=== PATIENT | male | born 1945 | race Caucasian/White ===

== ENCOUNTER → 2017-01-26 13:16 | Outpatient (CLI) | payer MEDICARE, OTHER ==
[2012-09-17 09:54] VITALS: BMI 41.8
== END | disposition home or self-care (01) ==
LOC: D.CT 13:16
DX: R10.9 Unspecified abdominal pain (principal)

== ENCOUNTER 2017-05-14 08:22 | Outpatient (CLI) | payer MEDICARE, OTHER ==
--- NOTE | ~2017-05-14 | HEMODYNAMI ---
PATIENT:DEB GHOSH MEDICAL RECORD: [id number] : 45 LOCATION:[place] ADMISSION DATE: 05/14/17 Generatedon:05/14/201711:29 Patient name: DEB GHOSH Patient #: [id number] SSN: : 1945 Date of study: 05/14/2017 Page: Of Hemodynamic Procedure Report Patient Data Patient Demographics Procedure consent was obtained First Name: DEB Gender: Male Last Name: AUGIE : 1945 Middle Initial: E Age: 71 year(s) Patient #: [id number] Race: Unknown Additional ID: [id number] Contact details [address]: [address] [place] [address] State: [place] City: [place] Zip code: [address] Past Medical History Allergies Allergen Reaction Date Comments Reported Other allergy 05/14/2017 Erythromicin, Tetracycline, Biaxin. Admission Admission Data Admission Date: 05/14/2017 Admission Time: 8:22 Lab Results Lab Result Date: 05/14/2017 Lab Result Time: 8:45 Biochemistry Name Units Result Min Max BUN mg/dl 19 --(----)*- 7 18 Creatinine mg/dl 1 --(--*-)-- 0.6 1.3 CBC Name Units Result Min Max Hematocrit % 39.1 -*(----)-- 42 54 Hemoglobin g/dl 13.1 -*(----)-- 13.5 17.5 Procedure Procedure Types Cath Procedure Diagnostic Procedure LHC LH w/Coronaries FFR/IVUS Intra-Coronary IVUS Initial PCI Procedure Coronary Stent Initial Miscellaneous Procedures Moderate Sedation up to 15 minutes Procedure Description Procedure Date Procedure Date: 05/14/2017 Procedure Start Time: 11:12 Procedure End Time: 11:28 Procedure Staff Name Function Mason Nava MD Performing Physician Estela Hadley RT Scrub Yolie Gar RN Nurse Basil Egan RT Monitor Procedure Data Cath Procedure Fluoroscopy Diagnostic fluoroscopy Total fluoroscopy Time: 3.3 time: 3.3 min min Diagnostic fluoroscopy Total fluoroscopy dose: 857 dose: 857 mGy mGy Contrast Material Contrast Material Type Amount (ml) Isovue 300 90 Entry Location Entry Primary Successful Side Size Upsize Upsize Entry Closure Boudreaux ccessful Closure Location (Fr) 1 (Fr) 2 (Fr) Remarks Device Remarks Radial Right 6 Fr Mechanical artery Short Compression Estimated blood loss: 10 ml Diagnostic catheters Device Type Used For End Catheter Placement Diagnostic Terumo 5Fr Procedure Irma 110cm catheter Procedure Complications No complications Procedure Medications Medication Administration Route Dosage Oxygen NC 2 l/min Lidocaine 2% added to field 20 Heparin Flush Bag added to field 2 bags (1000units/500ml NS) 0.9% NaCl I.V. 100 ml/hr Versed I.V. 1 mg Fentanyl I.V. 50 mcg Radial Cocktail I.A. 1 syringe (Verapomil 2mg/Nitro 400mcg/Heparin 1500units) Versed I.V. 1 mg Fentanyl I.V. 50 mcg Versed I.V. 1 mg Fentanyl I.V. 50 mcg Heparin Bolus I.V. 4000 units Versed I.V. 1 mg Fentanyl I.V. 50 mcg Hemodynamics Rest HGB: 13.1 (g/dl) Heart Rate: 64 (bpm) Snapshots Pre Cath Intra NCS Post Cath Vital Signs Time Heart Resp SPO2 NIBP (mmHg) Rhythm Pain Sedation Rate (ipm) (%) Status Level (bpm) 10:29:13 67 18 99 119/69(92) NSR 0 (11) 10(A) , No pain 10:33:45 67 18 99 124/72(97) NSR 0 (11) 10(A) , No pain 10:38:20 69 15 100 114/69(82) NSR 0 (11) 10(A) , No pain 10:42:52 68 15 96 105/63(76) NSR 0 (11) 10(A) , No pain 10:47:16 69 16 96 113/68(88) NSR 0 (11) 10(A) , No pain 10:51:45 72 14 96 122/73(89) NSR 0 (11) 10(A) , No pain 10:56:17 68 15 95 111/72(87) NSR 0 (11) 10(A) , No pain 11:00:45 71 16 95 115/67(93) NSR 0 (11) 10(A) , No pain 11:05:18 71 13 95 118/64(87) NSR 0 (11) 10(A) , No pain 11:09:50 72 16 94 115/71(94) NSR 0 (11) 10(A) , No pain 11:14:25 79 14 94 102/59(77) NSR 0 (11) 9(A) , No pain 11:18:51 64 15 95 113/63(87) NSR 0 (11) 9(A) , No pain 11:23:19 73 16 94 118/71(101) NSR 0 (11) 9(A) , No pain 11:27:50 74 16 95 119/70(98) NSR 0 (11) 10(A) , No pain Medications Time Medication Route Dose Verified Delivered Reason Note s Effectiveness by by 10:28:13 Oxygen NC 2 l/min Mason Buffie used for Elijah Gar RN procedure 10:28:23 Lidocaine 2% added 20ml Masoncelio Cuevas for local to vial Elijah Nava MD anesthetic field 10:28:32 Heparin Flush added 2 bags Mason Cuevas used for Bag to Elijah Nava MD procedure (1000units/500ml field NS) 10:28:40 0.9% NaCl I.V. 100 Mason Buffie Per physician ml/hr Elijah Gar RN 11:11:05 Versed I.V. 1 mg Mason Cordonie for sedation Elijah Gar RN 11:11:10 Fentanyl I.V. 50 mcg Mason Cordonie for sedation Elijah Gar RN 11:13:30 Radial Cocktail I.A. 1 Mason Mason for (Verapomil syringe Elijah Nava MD vasodilation 2mg/Nitro 400mcg/Heparin 1500units) 11:13:35 Versed I.V. 1 mg Mason Buffie for sedation Elijah Gar RN 11:13:38 Fentanyl I.V. 50 mcg Mason Buffie for sedation Elijah Gar RN 11:18:04 Versed I.V. 1 mg Mason Buffie for sedation Elijah Gar RN 11:18:07 Fentanyl I.V. 50 mcg Mason Buffie for sedation Elijah Gar RN 11:19:50 Heparin Bolus I.V. 4000 Mason Urbano for veri fied units Elijah Gar RN anticoagulation with dr nava 11:23:00 Fentanyl I.V. 50 mcg Mason Urbano for sedation Elijah Gar RN 11:23:56 Versed I.V. 1 mg Mason Urbano for sedation Elijah Gar RN Procedure Log Time Note 10:05:11 Estela Hadley RT(R) sent for patient. Start room use. 10:14:18 Time tracking: Regular hours 10::22 Plan of Care:Hemodynamics will remain stable., Cardiac rhythm will remain stable., Comfort level will be maintained., Respiratory function will remain adequate., Patient/ family verbilizes understanding of procedure., Procedure tolerated without complication., Recovers from procedure without complications.. 10:14:27 Patient received from Pre/Post Procedure Room to [facility] 2 Alert and oriented. Tansferred to table in Supine position. 10:14:28 Warm blankets applied, and humberto hugger turned on for patient comfort. 10:14:29 Correct patient and procedure confirmed by team. 10:14:30 Signed procedure consent form obtained from patient. 10:14:30 ECG and BP/O2 sat monitors applied to patient. 10:14:32 Full Disclosure recording started 10:27:47 Vital chart was started 10:28:13 Oxygen 2 l/min NC was administered by Yolie Gar RN; used for procedure; 10::23 Lidocaine 2% 20ml vial added to field was administered by Mason Nava MD; for local anesthetic; 10:28:32 Heparin Flush Bag (1000units/500ml NS) 2 bags added to field was administered by Mason Nava MD; used for procedure; 10:28:40 0.9% NaCl 100 ml/hr I.V. was administered by Yolie Gar RN; Per physician; 10:30:13 Baseline sample Acquired. 10:30:23 Rhythm: sinus rhythm 10:30:56 H&P Date Dictated: 05/14/2017 New H&P dictated by physician.. 10:30:57 Pre-procedure instructions explained to patient. 10:30:57 Pre-op teaching completed and patient verbalized understanding. 10:30:58 Family in waiting room. 10:31:00 Patient NPO since Midnight. 10:31:22 Patient allergic to Other allergyErythromicin, Tetracycline, Biaxin. 10:33:22 Is the patient allergic to Iodine/contrast media? No. 10:33:23 Is patient on blood thinner?Yes 10:33:25 ACC The patient was administered the following blood thiners within the last 24 hours: ACCPlavix 10:33:27 Patient diabetic? Yes. 10:33:28 If diabetic: On Metformin? Yes 10:33:30 If on Metformin: Last Dose? 05/12/2017 10:33:33 Previous problem with sedation/anesthesia? No ? 10:33:34 Snore? Yes 10:33:35 Sleep apnea? Yes 10:33:36 Deviated septum? No 10:33:36 Opens mouth fully? Yes 10:33:37 Sticks out tongue? Yes 10:33:43 Airway obstruction? Yes Light Asthma 10:33:47 Dentures? Yes In tight 10:33:51 Modified Christian's test Ulnar < 7 seconds 10:33:53 Patient pain scale 0/10 ?. 10:34:11 IV patent on arrival in left wrist with 0.9% NaCl at [facility]. 10:34:47 Lab Result : Creatinine 1 mg/dl 10:34:47 Lab Result : BUN 19 mg/dl 10:34:47 Lab Result : Hemoglobin 13.1 g/dl 10:34:47 Lab Result : Hematocrit 39.1 % 10:34:49 Lab results completed and on chart. 10:34:52 Right Radial & Right Groin area was prepped with chlora-prep and draped in sterile fashion 10:34:52 Alarms reviewed by R. N. 10:34:53 Sharps counted by scrub and verified by R.N. 10:34:55 Use device set Radial Dx 10:34:56 MBrace Wrist Support opened to sterile field. 10:34:57 Tegaderm 4 x 4 opened to sterile field. 10:34:59 Acist Hand Control opened to sterile field. 10:34:59 Acist Manifold opened to sterile field. 10:35:00 Acist Syringe opened to sterile field. 10:35:01 Medline Cath Pack opened to sterile field. 10:35:01 Bag Decanter opened to sterile field. 10:35:02 Terumo 6Fr Slender Glidesheath opened to sterile field. 10:35:02 St Jonas 260cm J .035 wire opened to sterile field. 10:43:34 Zero performed for pressure channel P1 10:43:36 Zero performed for pressure channel P1 10:43:39 Zero performed for pressure channel P1 10:43:42 Zero performed for pressure channel P1 10:43:45 Zero performed for pressure channel P1 11:: Physician arrived :: --------ALL STOP TIME OUT------ : Final Timeout: patient, procedure, and site verified with staff and physician. All members of the team are in agreement. :: Right Radial & Right Groin site verified by team. :: Physical assessment completed. ASA score P 2 - A patient with mild systemic disease as per Mason Nava MD. 11::29 Sedation plan: IV Moderate Sedation Versed, Fentanyl 11:11:05 Versed 1 mg I.V. was administered by Yolie Gar RN; for sedation; 11:11:10 Fentanyl 50 mcg I.V. was administered by Yolie Gar RN; for sedation; 11:12:22 Procedure started. 11:12:27 Local anesthetic to right radial artery with Lidocaine 2% by Mason Nava MD.INITIAL ACCESS ONLY 11:12:44 A 6 Fr Short sheath was inserted into the Right Radial artery 11:13:18 A Diagnostic Terumo 5Fr Irma 110cm catheter was advanced over the wire and used for Procedure. 11:13:30 Radial Cocktail (Verapomil 2mg/Nitro 400mcg/Heparin 1500units) 1 syringe I.A. was administered by Mason Nava MD; for vasodilation; 11:13:35 Versed 1 mg I.V. was administered by Yolie Gar RN; for sedation; 11:13:38 Fentanyl 50 mcg I.V. was administered by Yolie Gar RN; for sedation; 11:13:44 LV gram done using MAYA 11:13:46 Injector settings: Ml/sec: 5, Volume: 15, 11:13:48 LV hemodynamics recorded. 11:14:00 EF : 50 % 11:14:02 LCA angiography performed. 11:16:59 Catheter removed. 11:17:04 Cordis 6FR XBLAD 3.5 guide catheter opened to sterile field. 11:17:18 [place] IVUS Catheter opened to sterile field. 11:17:18 Sheppard Whisper J 300cm 0.014 guide wire opened to sterile field. 11:17:19 Delectable BasixCompak Inflation Kit opened to sterile field. 11:17:26 6 Fr xblad 3.5 guide catheter was inserted over the wire 11:17:39 whisper wire advanced. 11:17:48 Wire advanced across lesion. 11:18:04 Versed 1 mg I.V. was administered by Yolie Gar RN; for sedation; 11:18:05 IVUS catheter advanced over wire. 11:18:07 Fentanyl 50 mcg I.V. was administered by Yolie Gar RN; for sedation; 11:19:50 Heparin Bolus 4000 units I.V. was administered by Yolie Gar RN; for anticoagulation; verified with dr nava 11:20:55 IVUS pass to Circ lesion performed. 11:20:56 IVUS catheter removed over wire. 11:23:00 Fentanyl 50 mcg I.V. was administered by Yolie Gar RN; for sedation; 11:23:34 Inflation Number: 1 A Loyalzootronic Integrity 3.5 X 15 stent was prepped and advanced across the Mid CX. The stent was deployed at 13 NARENDRA for 0:10 (min:sec). 11:23:37 Stent catheter was removed intact over wire. 11:23:38 Wire removed. 11:23:38 Guide catheter removed. 11:23:50 Terumo TR Band Standard opened to sterile field. 11:23:56 Versed 1 mg I.V. was administered by Yolie Gar RN; for sedation; 11:23:57 Sheath removed intact; hemostasis achieved with Mechanical Compression to the Right Radial artery. 11:24:00 Procedure ended.(Physican Out) 11:24:08 Fluoroscopy time 03.30 minutes. 11:24:11 Fluoroscopy dose: 857 mGy 11:24:11 Flurop Dose total: 857 11:24:16 Contrast amount:Isovue 300 90ml. 11:24:17 Sharps counted by scrub and verified by R.N. 11:24:19 TR band inflated with 12cc of air. 11:24:20 Insertion/operative site no bleeding no hematoma. 11:24:26 Post right radial artery:stable, soft, clean and dry 11:24:27 Post Procedure Pulses reassessed and unchanged 11:24:30 Post-procedure physical assessment completed. ASA score P 2 - A patient with mild systemic disease as per Mason Nava MD. 11:24:32 Post procedure rhythm: unchanged. 11:24:45 Estimated blood loss: 10 ml 11:24:46 Post procedure instruction explained to patient.Patient verbalizes understanding. 11:24:55 Patient needs reinforcement of post procedure teaching. 11:25:19 Procedure type changed to Cath procedure, Diagnostic procedure, LHC, LHC w/Coronaries, FFR/IVUS, Intra-Coronary IVUS Initial, PCI procedure, Coronary Stent Initial, Miscellaneous Procedures, Moderate Sedation up to 15 minutes 11:26:45 Terumo TR Band Large opened to sterile field. 11:28:41 Procedure and supply charges have been captured, reviewed, submitted and are correct. 11:28:43 Procedure Complication : No complications 11:28:44 Vital chart was stopped 11:28:45 See physician's report for complete and final results. 11:28:46 Report given to Pre/Post Procedure Room. 11:28:48 Patient transfered to Pre/Post Procedure Room with Stretcher. 11:28:50 Procedure ended. 11:28:50 Full Disclosure recording stopped 11:28:59 End room use (Document Last) Intervention Summary Intervention Notes Time ActionType Lesion and Equipment Action# Pressure Duration Attributes Used 11:23:34 Place stent Mid CX Medtronic 1 13 00:10 Integrity 3.5 X 15 stent Device Usage Item Name Manufacture Quantity Catalog Hospital Part Current Minimal Lot# / Number Charge Number Stock Stock Serial# Code [facility] 1 140-0250-00 488564 97121 365128 5 Wrist Vascular Support Dynamics Tegaderm 4 3M 1 1626W 202545 886490 059344 5 x 4 Acist Hand Acist 1 48569 280719 009849 504751 5 Control Medical Systems Inc Acist Acist 1 18252 639870 387487 374456 5 Manifold Medical Systems Inc Acist Acist 1 88242 069022 400874 438159 20 Syringe Medical Systems Inc Medline Cardinal 1 [id number] 628661 97738 130163 5 Cath Pack Health Bag Microtek 1 2002S 282593 55512 259749 5 DecYee Care Medical Inc. Terumo 6Fr Terumo 1 [id number] 366760 572288 833318 [address] Jonas 1 222983 334523 361344 181380 30 260cm J .035 wire Diagnostic Terumo 1 82-6561 718358 518961 020623 5 Terumo 5Fr Irma 110cm catheter Cordis 6FR Cardinal 1 [id number] 079411 284557 521047 10 XBLAD 3.5 Health guide catheter [place] 1 [id number] 441962 228824 476916 8 [place] Eagley[place] IVUS Catheter Sheppard Sheppard 1 [id number] 472569 664957 946928 5 Whisper J Vascular 300cm 0.014 guide wire Merit Merit 1 [id number] 148873 369645 091364 15 BasixXtelligent [employer] (PRN) Medical Inflation Kit Medtronic Medtronic 1 [id number] 964901 103675 4 [id number] Integrity 3.5 X 15 stent Terumo TR Terumo 1 [id number] 993451 470744 711430 40 Band Standard Terumo TR Terumo 1 [id number] 921869 543888 013788 40 Band Large Signature Audit [place] Stage Time Signature Unsigned Intra-Procedure 05/14/2017 Basil Egan 11:29:38 AM RT(R) Signatures Monitor : Basil Egan RT Signature : Date : Time : [facility] [address] [facility] [place] [place] [address]
[2017-05-14] MEDS ORDERED: CELEXA40 MG PO (08:36)
[2017-05-14] MEDS ORDERED: PLAVIX75 MG PO (08:36)
[2017-05-14] MEDS ORDERED: NIASPAN500 MG PO (08:39)
[2017-05-14] MEDS ORDERED: LIPITOR10 MG PO (08:39)
[2017-05-14] MEDS ORDERED: GLUCOPHAGE500 MG PO (08:39)
[2017-05-14] MEDS ORDERED: LISINOPRIL-HCTZ1 T11 PO (08:40)
[2017-05-14] MEDS ORDERED: NEXIUM40 MG PO (08:40)
[2017-05-14] MEDS ORDERED: SYNTHROID150 MCG PO (08:40)
[2017-05-14] MEDS ORDERED: BAYER CHEWABLE81 MG PO (08:41)
[2017-05-14] MEDS ORDERED: LANTUS INSULIN10 ML SC (08:42)
[2017-05-14] MEDS ORDERED: FISH OIL 1,0001 CA1 PO (08:42)
[2017-05-14 08:50] VITALS: BP 142/53; BMI 27.7
[2017-05-14 08:59] LABS: BASOPHILS 0.3 % (0-2); HEMATOCRIT 39.1 % (42.0-54.0); HEMOGLOBIN 13.1 g/dL (13.5-17.5); IMMATURE GRANULOCYTES 0.2 % (0-5); LYMPHOCYTES 34.8 % (15-50); MCH 28.9 pg (26.0-34.0); MCHC 33.5 g/dL (31.0-37.0); MCV 86.3 fL (80.0-100.0); MEAN PLATELET VOLUME 9.8 fL (7.4-10.4); MONOCYTES 7.5 % (2-11); NEUTROPHILS 54.2 % (40-80); PLATELET COUNT 213 10x3/uL (130-400); RBC 4.53 10x6/uL (4.20-6.10); RDW 14.2 % (11.5-14.5); WBC 6.4 10x3/uL (4.8-10.8)
[2017-05-14 09:05] LABS: CALC OSMOLALITY 282 mosm/kg (275-300); CALCIUM 9.6 mg/dL (8.5-10.1); CHLORIDE - SERUM 102 mmol/L (98-107); GLUCOSE 137 mg/dL (74-106); POTASSIUM - SERUM 3.7 mmol/L (3.5-5.1); SODIUM 140 mmol/L (136-145); UREA NITROGEN 19 mg/dL (7-18); eGFR NON AFRICAN AMERICAN 78 mL/min (90-120)
--- NOTE | 2017-05-14 11:45 | NUR ---
1145 RECIEVED TO ROOM VIA STRETCHER FROM ORNAMENTAL PLASTERER HELPER WITH REPORTS OF ONE STENT TO THE CIRCUMFLEX. TR BAND TO R/WRIST CDI NO BLEEDING NO HEMATOMA NOTED. VSS WILL MONITOR
--- NOTE | 2017-05-14 12:13 | NUR ---
HR 65 CHEST PAIN DENIED BP 106/58 TR BAND TO R/WRIST CDI NO BLEEDING NO HEMATOMA NOTED. INSTRUCTED PATIENT TO KEEP RUE STRAIGHT NO BENDING OR FLEXING OF WRIST
--- NOTE | 2017-05-14 12:40 | NUR ---
2L NC, NO RESP DISTRESS NOTED. RIGHT WRIST TR BAND CDI, NO BLEEDING OR HEMATOMA NOTED. NO C/O CHEST PAIN OR NAUSEA. VSS. AT BEDSIDE, CALL LIGHT WITHIN REACH.
--- NOTE | 2017-05-14 13:09 | HP ---
PATIENT: DEB GHOSH MEDICAL RECORD: [id number] ACCOUNT: [id number] LOCATION:[place] : 45 ADMISSION DATE: 05/14/17 HISTORY AND PHYSICAL EXAMINATION ADMITTING DIAGNOSES: 1. Angina. 2. Abnormal nuclear stress test. 3. Coronary artery disease. 4. Diabetes. 5. Hypertension. 6. Hyperlipidemia. HISTORY OF PRESENT ILLNESS: Mr. Ghosh presents with recurrent anginal symptomatology, found to have reversible ischemia inferiorly on nuclear stress test, now brought for cardiac catheterization. PHYSICAL EXAMINATION: GENERAL APPEARANCE: Well-nourished, well-developed, appears stated age. Level of distress, comfortable. PSYCHIATRIC: Mental status, alert, normal affect. Orientation, oriented to time, place and person. EYES: Lids and conjunctiva, noninjected. No discharge, no pallor. ENT: Lips, teeth, gums, normal dentition. Oropharynx, no cyanosis, no pallor. NECK: Carotid arteries, bilateral normal upstroke, no bruits, no thrills. JUGULAR VEINS: No jugular venous pressure or distention. CERVICAL LYMPH NODES: Nontender, nonenlarged. THYROID: Not enlarged. Nontender. No nodules. LUNGS: Respiratory effort, unlabored. CHEST: Normal curvature. No thoracic deformity. No chest wall tenderness. Percussion, resonant. Auscultation, clear. No wheezes, no rales, no rhonchi. CARDIOVASCULAR: Precordial exam, nondisplaced. No heaves or pericardial thrills. Rate and rhythm, regular. Heart sounds, normal S1, normal S2. No S3, no gallop, no rub. Systolic murmur, not heard. Diastolic murmur, not heard. EXTREMITIES: No cyanosis, no edema. Peripheral pulses, full and equal in all extremities, except as noted. No bruits appreciated. ABDOMEN: Soft, nondistended. Normal aorta. No bruit. Nontender. No masses. Liver, nontender, no hepatomegaly. Spleen, nontender, no splenomegaly. MUSCULOSKELETAL: No joint tenderness. No joint swelling. No erythema. NEUROLOGICAL: Normal gait, normal strength, normal tone. SKIN: Warm and dry. REVIEW OF SYSTEMS: The patient reports easy bruising but reports no swollen glands. The patient reports no fever, no night sweats, no significant weight gain, no significant weight loss. No significant exercise tolerance. The patient reports no dry eyes, no irritation, no vision change. Patient reports no difficulty hearing and no ear pain. Patient reports no frequent nose bleeds or nose and sinus problems. Patient reports on arm pain on exertion. No shortness of breath while lying down. No history of heart murmur. Patient reports no cough, no wheezing or coughing up blood. Patient reports no abdominal pain, no vomiting. Normal appetite. No diarrhea and not vomiting blood. No nausea and no constipation. Patient reports no incontinence. No difficulty urinating. No hematuria. No increased frequency. Patient reports no muscle aches. No weakness, no arthralgias, no back pain. No swelling of the extremities. Patient reports no abnormal mole, no jaundice, no rashes. Reports HISTORY AND PHYSICAL [id number] DEB GHOSH no loss of consciousness. No weakness and no numbness. No seizures, dizziness, or headaches. The patient reports no depression, no sleep disturbance, feeling safe in a relationship and no alcohol abuse. Patient reports on fatigue. Reports no runny nose or sinus pressure. No itching, no hives, and no frequent sneezing. OVERALL IMPRESSION: Anginal symptomatology with abnormal nuclear stress test. We will proceed with coronary angiography. Further care depends upon findings of the angiography. TRANSINT:[id number] Voice Confirmation ID: [id number] DOCUMENT ID: [id number] SUMI KIMBROUGH MD at 1309 CC: [id number] DICTATION DATE: 05/14/17928 BARREL BUILDER: 05/14/1745 REG [facility] [address] [place] [address]
--- NOTE | 2017-05-14 13:09 | OP ---
PATIENT NAME: DEB GHOSH MEDICAL RECORD: [id number] :45 LOCATION:[place] ADMISSION DATE: SURGEON: SUMI KIMBROUGH MD DATE OF OPERATION: 05/14/2017 PROCEDURES: 1. PTCA stent left circumflex. 2. Left heart catheterization. 3. Selective coronary angiography. 4. Left ventriculogram. 5. Intravascular ultrasound of left circumflex. PROCEDURE IN DETAIL: After informed consent was obtained and after detailed explanation of risks, benefits as well as alternative therapies, the patient elected to proceed with angiogram and angioplasty. The right radial area was prepped and draped in normal sterile fashion. The right radial artery was cannulated via modified Seldinger technique with placement of 6-Arabic sheath. All catheters exchanged through this sheath. FINDINGS: The left circumflex has a 76% stenosis in the mid vessel confirmed by intravascular ultrasound. The left anterior descending has moderate irregularities, but no flow-limiting stenosis. Right coronary has moderate irregularities, but no flow-limiting stenosis. Left ventriculogram performed in standard 30-degree MAYA view, reveals good cardiac wall motion, ejection fraction 35%. PTCA STENT OF THE LEFT CIRCUMFLEX: The stent used was a 3.5 x 15 mm Integrity. Result was 0% residual stenosis. OVERALL IMPRESSION: Successful percutaneous transluminal coronary angioplasty stent of the left circumflex going from 76% initial stenosis to 0% residual stenosis. TRANSINT:[id number] Voice Confirmation ID: [id number] DOCUMENT ID: [id number] SUMI KIMBROUGH MD at 1309 CC: [id number] DICTATION DATE: 05/14/17 1127 CREPE MAKER: 05/14/17 1153 REG [facility] [address] [place] [address]
--- NOTE | 2017-05-14 13:10 | NUR ---
RESTING QUIETLY WITH EYES CLOSED. DENIES ANY CHEST PAIN. RIGHT WRIST TR BAND CDI, NO BLEEDING NOTED. VSS. CALL LIGHT WITHIN REACH.
--- NOTE | 2017-05-14 13:40 | NUR ---
RIGHT WRIST TR BAND CDI, NO BLEEDING OR HEMATOMA NOTED. 2L NC, NO RESP DISTRESS. NO C/O AT THIS TIME. WILL CONTINUE TO MONITOR.
--- NOTE | 2017-05-14 14:32 | NUR ---
3CC OF AIR REMOVED FROM TR BAND, NO BLEEDING NOTED. SANDWICH TRAY AND DRINK GIVEN, NO C/O NAUSEA. VSS.
--- NOTE | 2017-05-14 14:45 | NUR ---
3CC OF AIR REMOVED FROM TR BAND, NO BLEEDING NOTED.
--- NOTE | 2017-05-14 14:55 | NUR ---
2CC OF AIR REMOVED FROM TR BAND, NO BLEEDING NOTED.
--- NOTE | 2017-05-14 15:15 | NUR ---
LEFT FA PIV D/C'D WITH CATHETER INTACT, BAND AID TO SITE. UP TO BEDSIDE TO GET DRESSED.
--- NOTE | 2017-05-14 15:25 | NUR ---
DISCHARGE INSTRUCTIONS GIVEN, VERBALIZED UNDERSTANDING.
--- NOTE | 2017-05-14 15:30 | NUR ---
REMAINING AIR REMOVED FROM TR BAND, DRESSING TO SITE. TAKEN OUT VIA WHEELCHAIR BY CATH SHRIMP PICKER. LEFT FACILITY WITH AND ALL PERSONAL BELONGINGS.
== END 2017-05-14 15:30 | disposition home or self-care (01) ==
LOC: D.CATH 08:22
PROVIDERS: Internal Medicine Interventional Cardiology
DX: I25.119 Atherosclerotic heart disease of native coronary artery with unspecified angina pectoris (principal); R94.30 Abnormal result of cardiovascular function study, unspecified; E11.9 Type 2 diabetes mellitus without complications; I10 Essential (primary) hypertension; E78.5 Hyperlipidemia, unspecified; Z01.812 Encounter for preprocedural laboratory examination

== ENCOUNTER 2018-02-14 18:39 | Emergency (ER) | payer MEDICARE, OTHER ==
[~2018-02-14] VITALS: Ht 177.8 cm; Wt 134.1 kg
[~2018-02-14 18:39] MED LIST: BAYER CHEWABLE81 MG PO; CELEXA40 MG PO; FISH OIL 1,0001 CA1 PO; GLUCOPHAGE500 MG PO; LANTUS INSULIN10 ML SC; LIPITOR10 MG PO; LISINOPRIL-HCTZ1 T11 PO; NEXIUM40 MG PO; NIASPAN500 MG PO; PLAVIX75 MG PO; SYNTHROID150 MCG PO
[2018-02-14 18:53] VITALS: Ht 177.8 cm; Wt 134.1 kg
[2018-02-14] MEDS ORDERED: CLEOCIN HCL300 MG PO (20:37)
[2018-02-14] MEDS ORDERED: BACTROBAN NASAL1 GM NASAL (20:37)
[2018-02-14 20:50] VITALS: BP 147/67
== END 2018-02-14 20:50 | disposition home or self-care (01) ==
LOC: D.ER 18:39
DX: L02.211 Cutaneous abscess of abdominal wall (principal); I10 Essential (primary) hypertension; E11.9 Type 2 diabetes mellitus without complications

== ENCOUNTER → 2019-02-21 16:34 | Outpatient (CLI) | payer MEDICARE, OTHER ==
[2018-02-14 18:53] VITALS: BMI 42.4
[~2019-02-21 16:34] MED LIST changes: +BACTROBAN NASAL1 GM NASAL; +CLEOCIN HCL300 MG PO
== END | disposition home or self-care (01) ==
LOC: D.LABREF 16:34
PROVIDERS: ATTEND Orthopaedic Surgery
DX: M17.11 Unilateral primary osteoarthritis, right knee (principal); Z11.8 Encounter for screening for other infectious and parasitic diseases

== ENCOUNTER 2019-02-24 12:58 | Inpatient (IN) | payer MEDICARE, OTHER ==
[~2019-02-24] VITALS: Ht 177.8 cm; Wt 129.3 kg
[~2019-02-24 12:58] MED LIST changes: +CELEXA10 MG PO; -CELEXA40 MG PO; +GLUCOPHAGE1000 MG PO; -GLUCOPHAGE500 MG PO; +SYNTHROID100 MCG PO; -SYNTHROID150 MCG PO
[2019-03-14] MEDS ORDERED: LISINOPRIL40 MG PO (13:48)
[2019-03-14] MEDS ORDERED: HYDROCHLOROTHIA25 MG PO (13:49)
[2019-03-14] MEDS ORDERED: CLARITIN 10 MG10 MG PO (13:52)
[2019-03-14] MEDS ORDERED: MIRALAX17 GM PO (13:55)
[2019-03-14] MEDS ORDERED: CENTRUM MEN'S1 EACH PO (13:56)
[2019-03-14] MEDS ORDERED: OSTEO BI-FLEX1 EAC1 PO (13:56)
[2019-03-14] MEDS ORDERED: VITAMIN C WIT1000 MG PO (13:57)
[2019-03-14] MEDS ORDERED: STOOL SOFTENER250 MG PO (13:57)
[2019-03-14] MEDS ORDERED: KRILL OIL 1,001 EAC1 PO (13:57)
[2019-03-14] MEDS ORDERED: LANTUS SOL100 UNIT/1 SC (14:02)
[2019-03-15 11:31] LABS: APTT 36.5 SECONDS (22.8-39.4); INR 1.01 (0.85-1.17); PROTIME 12.8 SECONDS (11.6-15.0)
[2019-03-15 11:36] LABS: CALCIUM 9.4 mg/dL (8.5-10.1); CARBON DIOXIDE 25.9 mmol/L (21.0-32.0); CREATININE - SERUM 1.2 mg/dL (0.6-1.3); POTASSIUM - SERUM 3.9 mmol/L (3.5-5.1)
[2019-03-15 11:48] LABS: APPEARANCE CLEAR (CLEAR); BILIRUBIN NEGATIVE (NEGATIVE); COLOR YELLOW (YELLOW); GLUCOSE NEGATIVE (NEGATIVE); KETONE NEGATIVE (NEGATIVE); NITRITE NEGATIVE (NEGATIVE); PROTEIN NEGATIVE (NEGATIVE); SPECIFIC GRAVITY 1.015 (1.005-1.020); UROBILINOGEN NORMAL (NORMAL)
[2019-03-15 12:26] LABS: BASOPHILS 0.2 % (0-2); EOSINOPHILS 3.4 % (0-7); HEMATOCRIT 42.5 % (42.0-54.0); HEMOGLOBIN 14.6 g/dL (13.5-17.5); IMMATURE GRANULOCYTES 0.4 % (0-5); LYMPHOCYTES 33.7 % (15-50); MCH 29.5 pg (26.0-34.0); MCHC 34.4 g/dL (31.0-37.0); MCV 85.9 fL (80.0-100.0); MEAN PLATELET VOLUME 9.7 fL (7.4-10.4); NEUTROPHILS 54.3 % (40-80); PLATELET COUNT 220 10x3/uL (130-400); RBC 4.95 10x6/uL (4.20-6.10); RDW 14.7 % (11.5-14.5); WBC 8.1 10x3/uL (4.8-10.8)
[2019-03-20] MEDS ORDERED: LOVENOX120 MG/0.8 SC (06:03)
[2019-03-20 06:21] VITALS: BP 155/78; BMI 40.9
--- NOTE | 2019-03-20 08:12 | NUR ---
PLASMA BLADE SET AT 6 AND 8 ELECTRODE PAD ON LEFT THIGH LOT# [id number] DATE 02/03/21
[2019-03-20 09:31] VITALS: BP 131/68
--- NOTE | 2019-03-20 09:47 | NUR ---
PT ARRIVED TO ROOm 2237 AWAKE AND ALERT. RESP EVEN AND UNLABORED WITH NO DISTRESS NOTED HAS O2 IN USE VIA NC AT 2 L/M. DENIES ANY PAIN OR DISCOMFORT AT THIS TIME. CAN EXPRESS NEEDS WANTS. DRESSING CLEAN DRY AND INTACT. VS STARTED PER PROTOCOL. C/L IN REACH AT BEDSIDE.
--- NOTE | 2019-03-20 12:49 | OP ---
PATIENT NAME: DEB GHOSH MEDICAL RECORD: [id number] :45 LOCATION:[id number] ADMISSION DATE:03/20/19 SURGEON: DEB PANG MD DATE OF OPERATION: 03/20/2019 PREOPERATIVE DIAGNOSIS: Degenerative arthritis of the right knee. POSTOPERATIVE DIAGNOSIS: Degenerative arthritis of the right knee. PROCEDURE: Right total knee arthroplasty. SURGEON: Deb Pang MD LICENSED OCCUPATIONAL THERAPIST: Vikki Jones. INTRAOPERATIVE COMPLICATIONS: None. SUMMARY OF PATHOLOGIC FINDINGS: The patient had extreme osteoarthritis. IMPLANTS USED: Spencer triathlon total knee arthroplasty, press fit, size 6 distal femur, size 6 tibial baseplate, size 11 CS insert, size 9 x 33 press fit patella. OPERATIVE SUMMARY IN DETAIL: After obtaining the appropriate preoperative orthopedic surgery consent as well as anesthetic consultation, evaluation and clearance, the patient was brought to the operating room and placed on the operating table in supine position. After general laryngeal mask was administered, tourniquet was placed on the proximal aspect of the right lower extremity. Right lower extremity was prepped and draped in routine sterile fashion. At this point, the appropriate timeout was taken including patient identifiers, appropriate operative site as well as medications and allergies all was agreed upon by the operative suite. The leg was elevated and exsanguinated, tourniquet inflated to 350 mmHg. Routine midline incision was taken down for paramedian arthrotomy. Patella was everted, distal femur was exposed. Soft tissue excision was done in the usual fashion followed by creating an intramedullary guide hole for distal femoral cut. Distal femoral cuts were made. The entire proximal tibia was exposed. Intramedullary guide hole was created for proximal tibial cutting. Appropriate measurements were made. Chamfer cuts of the distal femur were created. Trials were put into place. Final adjustments were made, taken through a range of motion and found to be stable. Final distal femoral and proximal tibial preparations were followed by excision of the articular surface that was arthritic of the patella. Final patellar preparations were made followed by complete washout of the knee to irrigate all fragments. Final component was put into place, taken through a range of motion. Patella did sublux laterally. Lateral release was performed. Having completed this, the knee was filled with a gram of vancomycin and a gram of tobramycin and the paramedian arthrotomy was closed by Vikki Jones using #2 Ethibond. This was then followed by #1 Vicryl, 2-0 Vicryl and skin william. Sterile dressings were applied. The patient was awakened, taken to the recovery room in stable condition. All final needle and sponge counts were correct. TRANSINT:[id number] Voice Confirmation ID: [id number] DOCUMENT ID: [id number] OPERATIVE REPORT [id number] DEB GHOSH MD, DEB MCCORMACK at 1249 CC: [id number] DICTATION DATE: 03/20/19914 SCALLOPER: 03/20/19 0945 ADM IN [place] [id number] [place] [id number]
[2019-03-20 14:01] VITALS: BP 99/56
[2019-03-20 17:15] VITALS: BP 106/53
--- NOTE | 2019-03-20 19:44 | NUR ---
UP IN BED, FAMILY AT BEDSIDE. MOOD AND AFFECT ARE PLEASANT, ABLE TO VOICE ALL NEEDS, COMPLAINTS OF PAIN TO RIGHT ARM 5/10 NOTED, PRN PAIN MEDS GIVEN PER ORDERS. IV TO LEFT HAND PATENT WITH FLUIDS RUNNING PER ORDERS. WILL NOTE ANY CHANGE.
[2019-03-20 20:00] VITALS: BP 109/58
[2019-03-21] VITALS: BP 110/48
[2019-03-21 04:00] VITALS: BP 117/49
--- NOTE | 2019-03-21 05:24 | NUR ---
I have reviewed this patient and I concur with the Shift Assessment completed by the Licensed Practical Nurse today this shift.
[2019-03-21 06:59] LABS: HEMATOCRIT 28.2 % (42.0-54.0); HEMOGLOBIN 9.4 g/dL (13.5-17.5); MCH 28.7 pg (26.0-34.0); MCHC 33.3 g/dL (31.0-37.0); MEAN PLATELET VOLUME 9.7 fL (7.4-10.4); RBC 3.28 10x6/uL (4.20-6.10); RDW 15.1 % (11.5-14.5); WBC 8.1 10x3/uL (4.8-10.8)
[2019-03-21 08:59] VITALS: BP 141/58
--- NOTE | 2019-03-21 10:50 | NUR ---
C/O NAUSEA WAS MEDCIATED WITH ZOFRAN AT THIS TIME. C/L IN REACH AT BEDSIDE.
[2019-03-21 13:11] VITALS: BP 195/78
--- NOTE | 2019-03-21 15:26 | NUR ---
MEDICATED WITH TORADOL AT THIS TIME FOR C/O RIGHT KNEE PAIN. C/L IN REACH AT BEDSIDE.
--- NOTE | 2019-03-21 15:26 | NUR ---
MEDICATED WITH TORADOL AT THIS TIME FOR C/O KNEE PAIN RATING 2/10. C/L IN REACH AT BEDSIDE.
[2019-03-21 16:44] VITALS: BP 111/90
--- NOTE | 2019-03-21 16:54 | NUR ---
I have reviewed this patient and I concur with the Shift Assessment completed by the Licensed Practical Nurse today this shift.
--- NOTE | 2019-03-21 19:47 | NUR ---
UP IN BED WITH CPM ON, IV TO LHAND WITH 1/2 NS INFUSING PER ORDERS, PLEASANT AND IN GOOD SPIRITS. ABLE TO VOICE ALL NEEDS. DENIES PAIN AT THIS TIME. WILL NOTE ANY CHANGE.
[2019-03-21 20:00] VITALS: BP 144/66
--- NOTE | 2019-03-21 22:49 | NUR ---
AT 2200, REQUESTED PAIN MEDICATION FOR 5/10 PAIN TO RIGHT KNEE, MEDICATION GIVEN PER ORDERS AND AT THIS TIME, HE IS RESTING IN BED WITH EYES CLOSED WITH NO S/S OF ANY ACUTE DISTRESS OR GRIMACES OF PAIN. WILL NOTE ANY CHANGE.
[2019-03-22] VITALS (7 sets, daily range): BP systolic 112–163; BP diastolic 53–73; BMI 40.9
--- NOTE | 2019-03-22 05:02 | NUR ---
I have reviewed this patient and I concur with the Shift Assessment completed by the Licensed Practical Nurse today this shift.
--- NOTE | 2019-03-22 05:06 | NUR ---
RESTED WELL THIS SHIFT, REQUESTED PAIN MED AT 0240 WAS GIVEN HYDROCODONE PER ORDERS, SHOWED NO S/S OF ANY RESIDUAL PAIN AFTER ADMINISTRATION OF MEDS, IN BED WITH NO S/S OF DISTRESS. WILL NOTE ANY CHANGE.
[2019-03-22 05:40] LABS: HEMOGLOBIN 8.2 g/dL (13.5-17.5); MCH 28.7 pg (26.0-34.0); MCHC 34.2 g/dL (31.0-37.0); MEAN PLATELET VOLUME 9.2 fL (7.4-10.4); RBC 2.86 10x6/uL (4.20-6.10); RDW 14.8 % (11.5-14.5); WBC 8.5 10x3/uL (4.8-10.8)
[2019-03-22 06:38] LABS: MCV 83.9 fL (80.0-100.0)
--- NOTE | 2019-03-22 07:00 | NUR ---
SHIFT ASSSESSMENT COMPLETED, PT CARE ASSUMED. PT AWAKE AND ALERT, CPM ON RIGHT KNEE. CALL LIGHT WITHIN REACH, WILL CONTINUE TO OBSERVE.
[2019-03-22 08:03] LABS: ANION GAP 13.6 mmol/L (8-16); CALCIUM 7.9 mg/dL (8.5-10.1); CARBON DIOXIDE 25.1 mmol/L (21.0-32.0); CREATININE - SERUM 1.1 mg/dL (0.6-1.3); POTASSIUM - SERUM 3.7 mmol/L (3.5-5.1)
--- NOTE | 2019-03-22 09:00 | NUR ---
IVF DISCONTINUED, IV REMOVED.
--- NOTE | 2019-03-22 11:00 | NUR ---
PT SITTING UP IN CHAIR EATING LUNCH, PT AMBULATES WITH ASSIST DEVICE, PT WALKED WITH PHYSICAL THERAPY TODAY AND TOLERATED WELL. CALL LIGHT WITHIN REACH, PRN PAIN MEDS GIVEN PER PTS REQUEST AND ORDERS. WILL CONTINUE TO OBSERVE.
--- NOTE | 2019-03-22 15:00 | NUR ---
PT SITTING UP IN BED, FAMILY AT BEDSIDE, PT DENIES ANY COMPLAINT OF PAIN OR DISCOMFORT AT THIS TIME, CALL LIGHT WITHIN REACH, WILL CONTINUE TO OBSERVE.
--- NOTE | 2019-03-22 20:30 | NUR ---
REC'D. CHGE OF SHIFT IN BED ACEWRAP DRSG. INTACT RIGHT KNEE.FOOT PINK AND WARM PEDAL PULSE PRESENT WIGLLES TOE AND DORSIFLEXES DENIES CALF PAIN OR ANY DECREASE IN SENSATION WITH MINIMALSWELLING OBSERVED ABOVE ANKLE.CPM ON.WILL CONTINUE TO MONITOR FOR ANY CHGES. AND FOLLOW CURRENT PLAN OF CARE
[2019-03-23] VITALS (8 sets, daily range): BP systolic 108–154; BP diastolic 55–73
--- NOTE | 2019-03-23 05:09 | NUR ---
I have reviewed this patient and I concur with the Shift Assessment completed by the Licensed Practical Nurse today this shift.
[2019-03-23 09:44] LABS: CALC OSMOLALITY 257 mosm/kg (275-300); CALCIUM 8.5 mg/dL (8.5-10.1); CARBON DIOXIDE 25.1 mmol/L (21.0-32.0); CHLORIDE - SERUM 91 mmol/L (98-107); GLUCOSE 122 mg/dL (74-106); HEMATOCRIT 22.9 % (42.0-54.0); HEMOGLOBIN 7.9 g/dL (13.5-17.5); MCH 28.4 pg (26.0-34.0); MCHC 34.5 g/dL (31.0-37.0); MCV 82.4 fL (80.0-100.0); MEAN PLATELET VOLUME 9.1 fL (7.4-10.4); POTASSIUM - SERUM 3.5 mmol/L (3.5-5.1); RBC 2.78 10x6/uL (4.20-6.10); RDW 14.3 % (11.5-14.5); SODIUM 127 mmol/L (136-145); UREA NITROGEN 18 mg/dL (7-18); WBC 9.4 10x3/uL (4.8-10.8); eGFR NON AFRICAN AMERICAN 78 mL/min (90-120)
--- NOTE | 2019-03-23 14:22 | NUR ---
Rehab Note- Acute Inpatient Rehab prescreen order received. Will accept the patient when medically stable and ready for discharge from the acute hospital. Will follow at this time. THank you for this referral! Mayuri Tsai RN Clinical Liaison, [facility] Re[facility]
[2019-03-24] VITALS: BP 144/67
--- NOTE | 2019-03-24 01:31 | NUR ---
PATIENT IS ALERT AND ORENTED ABLE TO VOICE NEEDS AND WANTS TO STAFF. IV TO RIGHT HAND . UNIT OF PRB COMPLETED ON THIS SHIFT AND TOLARATED WELL. FSB AC& HS 145 AT HS. UP WITH ASSIST X 1 STAFF. DRESSING TO RIGHT KNEE CDI. CPM PER ORDERS. CALL LIGHT AND WATER IN REACH, BED LOW.
[2019-03-24 04:00] VITALS: BP 136/68
--- NOTE | 2019-03-24 07:10 | NUR ---
REC'D IN BED ON THIS AM WITH NO DISTRESS NOTED. CAN EXPRESS NEEDS AND WANTS. NO C/O NOTED OR VOICED. DENIES ANY PAIN OR DISCOMFORT AT THIS TIME. ASSESSMENT COMPLETED. C/L IN REACH AT BEDSIDE.
[2019-03-24 07:49] VITALS: Ht 177.8 cm; Wt 129.3 kg
[2019-03-24 08:30] VITALS: BP 150/72
[2019-03-24 09:24] LABS: HEMOGLOBIN 9.1 g/dL (13.5-17.5); MCV 82.8 fL (80.0-100.0); MEAN PLATELET VOLUME 8.9 fL (7.4-10.4); RBC 3.14 10x6/uL (4.20-6.10); RDW 14.5 % (11.5-14.5); WBC 10.9 10x3/uL (4.8-10.8)
[2019-03-24 09:29] LABS: CALC OSMOLALITY 257 mosm/kg (275-300); CALCIUM 8.9 mg/dL (8.5-10.1); CARBON DIOXIDE 23.5 mmol/L (21.0-32.0); CHLORIDE - SERUM 88 mmol/L (98-107); GLUCOSE 155 mg/dL (74-106); POTASSIUM - SERUM 3.2 mmol/L (3.5-5.1); SODIUM 125 mmol/L (136-145); UREA NITROGEN 20 mg/dL (7-18); eGFR NON AFRICAN AMERICAN 78 mL/min (90-120)
[2019-03-24 12:47] VITALS: BP 135/66
[2019-03-24] MEDS ORDERED: ELIQUIS2.5 MG PO (14:12)
[2019-03-24] MEDS ORDERED: PERCOCET 10-321 EAC1 PO (14:15)
--- NOTE | 2019-03-24 15:29 | MORECARE ---
CASE MANAGEMENT DISCHARGE SUMMARY PATIENT: DEB GHOSH UNIT: [id number] ADM DATE: 03/20/19 AGE: 73 : 45 SEX: M ROOM/BED: D.2237 AUTHOR: FACUNDO SELLERS PHYSICIAN: REFERRING PHYSICIAN: DEB PANG MD DATE OF SERVICE: 03/24/19 Discharge Plan Patient Name: DEB GHOSH Facility: [facility]:[place] : 1945 Planned Disposition: Inpatient Rehab Anticipated Discharge Date: 03/24/19 Discharge Date: Expected LOS: 4 Initial Reviewer: [email or web address] Initial Review Date: 03/24/2019 Generated: 03/24/19 4:29 pm Comments DCP- Discharge Planning Updated by [email or web address]: Ebony Villarreal on 03/24/19 2:[address] Patient Name: DEB GHOSH Admission Status: Elective Accout number: [id number] Admission Date: 03-20-2019 : 1945 Admission Diagnosis:UNILATERAL PRIMARY OSTEOARTHRITIS, RIGHT KNEE Attending: DEB PANG Current LOS: 4 Anticipated DC Date: 03-24-2019 Planned Disposition: Inpatient Rehab Primary Insurance: MEDICARE A & B Discharge Planning Comments: CM MET WITH PATIENT ABOUT DC NEEDS AND PLANS. [facility] DC[facility]D. [facility] ALREADY HAS A WALKER. HOME ENVIRONMENT IS SAFE. CM TO FOLLOW AND ASSIST. Computational Sciences Professor: Ebony Villarreal DCPIA - Discharge Planning Initial Assessment Updated by [id number]: Ebony Villarreal on 03/24/19 3:26 pm * Is the patient Alert and Oriented? Yes * PCP CROFT * Pharmacy [facility] * Equipment Walker Coverage Notice Reviewer: [id number] - Ebony Villarreal Notice Issued Date-Time: 03/24/2019 14:24 Notice Type: IM Discharge Notice Notice Delivered To: Patient Relationship to Patient: Self Station Inspector Name: Delivery Method: HAND - Hand Delivered Karon Days: Prior Verbal Notification: Recipient Understood Notice: Yes Recipient Signature: Yes Med Rec Note Co-signed by Attending: Coverage Notice Comment: Patient Name: DEB GHOSH Page [id number] at 1529 All edits/amendments must be made on the electronic document DICTATION DATE: 03/24/191528 CHEF KITCHEN MANAGER: CLIFFORD 03/24/191528 RPT#: [id number] [place] DATE: STATUS: ADM IN [facility] [address] [place] [address] END OF REPORT
[2019-03-24 16:51] VITALS: BP 157/70
--- NOTE | 2019-03-24 16:55 | NUR ---
DC DOWNSTAIRS TO IN HOUSE REHAB. RESP EVEN AND UNLABORED WITH NO DISTRESSS NOTED. VOICE UNDERSTANDING OF DC INSTRUCTION. STABLE CONDITION UPON DEPARTURE. C/L IN REACH AT BEDSIDE.
--- NOTE | 2019-03-24 17:45 | MORECARE ---
CASE MANAGEMENT DISCHARGE SUMMARY PATIENT: DEB GHOSH UNIT: [id number] ADM DATE: 03/20/19 AGE: 73 : 45 SEX: M ROOM/BED: D.2237 AUTHOR: FACUNDO SELLERS PHYSICIAN: REFERRING PHYSICIAN: DEB PANG MD DATE OF SERVICE: 03/24/19 Discharge Plan Patient Name: DEB GHOSH Facility: [facility]:[place] : 1945 Planned Disposition: Inpatient Rehab Anticipated Discharge Date: 03/24/19 Discharge Date: 03/24/2019 Expected LOS: 4 Initial Reviewer: [email or web address] Initial Review Date: 03/24/2019 Generated: 03/24/19 6:45 pm Comments DCP- Discharge Planning Updated by [id number]: Ebony Villarreal on 03/24/19 2:[address] Patient Name: DEB GHOSH Admission Status: Elective Accout number: [id number] Admission Date: 03-20-2019 : 1945 Admission Diagnosis:UNILATERAL PRIMARY OSTEOARTHRITIS, RIGHT KNEE Attending: DEB PANG Current LOS: 4 Anticipated DC Date: 03-24-2019 Planned Disposition: Inpatient Rehab Primary Insurance: MEDICARE A & B Discharge Planning Comments: CM MET WITH PATIENT ABOUT DC NEEDS AND PLANS. STATES PLANS TO GO TO [facility] WHEN DC'D. [facility] ALREADY HAS A WALKER. HOME ENVIRONMENT IS SAFE. CM TO FOLLOW AND ASSIST. Store Lead: Ebony Villarreal DCPIA - Discharge Planning Initial Assessment Updated by [email or web address]: Ebony Villarreal on 03/24/19 3:26 pm * Is the patient Alert and Oriented? Yes * PCP CROFT * Pharmacy [facility] * Equipment Walker Coverage Notice Reviewer: [id number] - Ebony Villarreal Notice Issued Date-Time: 03/24/2019 14:24 Notice Type: IM Discharge Notice Notice Delivered To: Patient Relationship to Patient: Self Account Support Analyst Name: Delivery Method: HAND - Hand Delivered Karon Days: Prior Verbal Notification: Recipient Understood Notice: Yes Recipient Signature: Yes Med Rec Note Co-signed by Attending: Coverage Notice Comment: Last DP export: 03/24/19 2:29 p Patient Name: DEB GHOSH Page 24168 at 1745 All edits/amendments must be made on the electronic document DICTATION DATE: 03/24/191744 BICYCLE FITTER: CLIFFORD 03/24/191744 RPT#: [id number] DC DATE:03/24/19 STATUS: DIS IN [facility] [address] [place] [address] END OF REPORT
== END 2019-03-24 16:56 | DRG 470 ==
LOC: D.SDCHOLD 03-15 10:00 → D.MS 03-20 05:20 → D.SDCHOLD 03-20 05:20 → D.MS 03-20 09:28 → D.SDCHOLD 03-20 10:00 → D.MS 03-24 16:56
PROVIDERS: ADMIT Orthopaedic Surgery; ATTEND Orthopaedic Surgery
PROC: 0SRC0J9 Replacement of Right Knee Joint with Synthetic Substitute, Cemented, Open Approach (ICD-10-PCS; principal; 2019-03-20 07:30)
DX: M17.11 Unilateral primary osteoarthritis, right knee (principal); D62 Acute posthemorrhagic anemia; I10 Essential (primary) hypertension; E78.5 Hyperlipidemia, unspecified; E03.9 Hypothyroidism, unspecified; J45.909 Unspecified asthma, uncomplicated; G47.30 Sleep apnea, unspecified; E11.618 Type 2 diabetes mellitus with other diabetic arthropathy

== ENCOUNTER 2019-03-24 13:32 | Inpatient (IN) | payer MEDICARE, OTHER ==
[~2019-03-24] VITALS: Ht 177.8 cm; Wt 130.2 kg
[~2019-03-24 13:32] MED LIST changes: +CENTRUM MEN'S1 EACH PO; +CLARITIN 10 MG10 MG PO; +HYDROCHLOROTHIA25 MG PO; +KRILL OIL 1,001 EAC1 PO; +LANTUS SOL100 UNIT/1 SC; +LISINOPRIL40 MG PO; +LOVENOX120 MG/0.8 SC; +MIRALAX17 GM PO; +OSTEO BI-FLEX1 EAC1 PO; +STOOL SOFTENER250 MG PO; +VITAMIN C WIT1000 MG PO
[2019-03-24] MEDS ORDERED: ELIQUIS2.5 MG PO (14:12)
[2019-03-24] MEDS ORDERED: PERCOCET 10-321 EAC1 PO (14:15)
[2019-03-24 17:52] VITALS: BP 122/63; BMI 41.2
--- NOTE | 2019-03-24 19:10 | NUR ---
BEDSIDE SHIFT COMPLETED. SITTING UP IN BED VISITING WITH . DENIES ANY PAIN. REQUESTS FAN AND CHAIR WITH ARMS, FOUND BOTH AND PLACED IN ROOM. NO OTHER CONCERNS VOICED AT THIS TIME. NO SIGNS OF DISTRESS NOTED. CALL LIGHT WITHIN REACH, FALL PRECAUTIONS IN PLACE. WILL CONTINUE TO MONITOR
[2019-03-24 21:19] VITALS: BP 140/67
--- NOTE | 2019-03-24 23:33 | NUR ---
QUIET HOURS. LYING IN BED EYES OPEN ALERT, EMPTIED URINAL 300ML CLEAR YELLOW URINE. DENIES ANY NEEDS OR PAIN. NO SIGNS OF DISTRESS NOTED. WILL CONTINUE TO MONITOR
--- NOTE | 2019-03-25 02:06 | NUR ---
LYING IN BED EYES CLOSED RESTING. RR EVEN AND UNLABORED. WILL CONTINUE TO MONITOR
--- NOTE | 2019-03-25 04:49 | NUR ---
LYING IN BED EYES CLOSED RESTING. RR EVEN AND UNLABORED. WILL CONTINUE TO MONITOR
[2019-03-25 07:30] VITALS: BP 104/71
[2019-03-25 07:47] LABS: BASOPHILS 0.1 % (0-2); EOSINOPHILS 1.3 % (0-7); HEMATOCRIT 24.8 % (42.0-54.0); HEMOGLOBIN 8.7 g/dL (13.5-17.5); IMMATURE GRANULOCYTES 1.1 % (0-5); LYMPHOCYTES 16.7 % (15-50); MCH 29.1 pg (26.0-34.0); MCHC 35.1 g/dL (31.0-37.0); MCV 82.9 fL (80.0-100.0); MEAN PLATELET VOLUME 8.7 fL (7.4-10.4); MONOCYTES 10.3 % (2-11); NEUTROPHILS 70.5 % (40-80); PLATELET COUNT 255 10x3/uL (130-400); RBC 2.99 10x6/uL (4.20-6.10); RDW 14.7 % (11.5-14.5); WBC 8.9 10x3/uL (4.8-10.8)
[2019-03-25 07:53] LABS: CALC OSMOLALITY 256 mosm/kg (275-300); CALCIUM 8.9 mg/dL (8.5-10.1); CARBON DIOXIDE 26.2 mmol/L (21.0-32.0); CHLORIDE - SERUM 89 mmol/L (98-107); CREATININE - SERUM 0.9 mg/dL (0.6-1.3); GLUCOSE 143 mg/dL (74-106); SODIUM 125 mmol/L (136-145); UREA NITROGEN 21 mg/dL (7-18); eGFR NON AFRICAN AMERICAN 88 mL/min (90-120)
[2019-03-25 12:57] VITALS: Ht 177.8 cm; Wt 130.2 kg
--- NOTE | 2019-03-25 13:30 | NUR ---
SITTING UP IN RECLINER IN ROOM. DENIES NEEDS. FOOT IS PROPED UP ON TRASH CAN TO TAKE WEIGHT OFF LEG
[2019-03-25 19:20] VITALS: BP 154/74
--- NOTE | 2019-03-25 19:20 | NUR ---
BEDSIDE REPORT COMPLETE. SITTING UP IN BED ALERT AND ORIENTED X4. AT BEDSIDE NOTED. VS STABLE. LEFT HAND 22G IV DRESSING C/D/I, SITE WITHOUT REDNESS OR SWELLING, SWAB CAP IN USE. DENIES ANY NEEDS OR PAIN. NO SIGNS OF DISTRESS NOTED. RIGHT KNEE 4+ EDEMA BRUISING AND REDNESS NOTED. INCISION WITH KERRY OPEN TO AIR. CALL LIGHT WITHIN REACH, FALL PRECAUTIONS IN PLACE. WILL CONTINUE TO MONITOR
[2019-03-25 20:10] VITALS: BP 147/66
--- NOTE | 2019-03-25 20:15 | NUR ---
STARTED 1ST UNIT PRBC AT 50ML/HR FOR 1ST 15MIN. VS OBTAINED. WILL CONTINUE TO MONITOR
[2019-03-25 20:30] VITALS: BP 133/66
--- NOTE | 2019-03-25 20:30 | NUR ---
VS STABLE PT SHOWS NO S/S OF TRANSFUSION REACTION, LEFT HAND IV INFUSING 15OML/HR. WILL CONTINUE TO MONTIOR
--- NOTE | 2019-03-25 22:30 | NUR ---
FIRST UNIT PRBC COMPLETE, CLAMPED OFF AND INFUSING NS AT 50ML/HR. VS STABLE NO SIGNS OF DISTRESS NOTED.
[2019-03-25 22:35] VITALS: BP 152/69
--- NOTE | 2019-03-25 22:40 | NUR ---
2ND UNIT OF PRBC INFUSING 150ML/HR. VS STABLE. NO CONCERNS VOICED. WILL CONTINUE TO MONITOR
--- NOTE | 2019-03-26 00:49 | NUR ---
QUIET HOURS. LYING IN BED EYES CLOSED RESTING. HOME CPAP IN USE. LEFT HAND IV INFUSING PRBC 150ML/HR. NO SIGNS OF DISTRESS NOTED. WILL CONTINUE TO MONITOR
[2019-03-26 01:40] VITALS: BP 132/64
--- NOTE | 2019-03-26 01:44 | NUR ---
2ND UNIT OF PRBC COMPLETE. VS STABLE. PT RESTING COMFORTABLY. ALL LINES AND IV BAGS DISPOSED OF PROPERLY. WILL CONTINUE TO MONITOR
--- NOTE | 2019-03-26 03:40 | NUR ---
LYING IN BED SUPINE EYES CLOSED, CPAP ON RESTING. NO SIGNS OF DISTRESS NOTED. WILL CONTINUE TO MONITOR
[2019-03-26 05:40] LABS: BASOPHILS 0.2 % (0-2); EOSINOPHILS 1.1 % (0-7); HEMATOCRIT 29.3 % (42.0-54.0); HEMOGLOBIN 10.3 g/dL (13.5-17.5); IMMATURE GRANULOCYTES 1.3 % (0-5); LYMPHOCYTES 20.1 % (15-50); MCH 29.3 pg (26.0-34.0); MCHC 35.2 g/dL (31.0-37.0); MCV 83.2 fL (80.0-100.0); MEAN PLATELET VOLUME 8.7 fL (7.4-10.4); MONOCYTES 9.9 % (2-11); NEUTROPHILS 67.4 % (40-80); PLATELET COUNT 266 10x3/uL (130-400); RBC 3.52 10x6/uL (4.20-6.10); RDW 14.9 % (11.5-14.5); WBC 9.4 10x3/uL (4.8-10.8)
[2019-03-26 05:47] LABS: CALC OSMOLALITY 263 mosm/kg (275-300); CALCIUM 8.9 mg/dL (8.5-10.1); CARBON DIOXIDE 24.2 mmol/L (21.0-32.0); CHLORIDE - SERUM 93 mmol/L (98-107); CREATININE - SERUM 0.9 mg/dL (0.6-1.3); GLUCOSE 139 mg/dL (74-106); POTASSIUM - SERUM 3.4 mmol/L (3.5-5.1); SODIUM 129 mmol/L (136-145); UREA NITROGEN 21 mg/dL (7-18); eGFR NON AFRICAN AMERICAN 88 mL/min (90-120)
--- NOTE | 2019-03-26 06:23 | NUR ---
LYING IN BED EYES CLOSED RESTING. EASILY AROUSED WITH VERBAL STIMULI. CPAP STILL IN USE. DENIES ANY NEEDS OR PAIN. FSBS 147. WILL CONTINUE TO MONITOR
[2019-03-26 07:30] VITALS: BP 166/74
--- NOTE | 2019-03-26 12:01 | NUR ---
CPM MACHINE IN USE TO RLE IN BED. PT TOLERATING WELL. CALL LIGHT IN REACH
--- NOTE | 2019-03-26 18:32 | NUR ---
USED CPM FOR 3 HRS TODAY IN BED. INCISION INTACT. NO DRAINAGE NOTED. STILL HAS SOME EDEMA NOTED TO RT KNEE. IN ROOM WITH PT.
--- NOTE | 2019-03-26 19:10 | NUR ---
BEDSIDE REPORT COMPLETE. SITTING UP IN BED WATCHING TV. AT BEDSIDE NOTED. DENIES ANY NEEDS OR PAIN. NO SIGNS OF DISTRESS NOTED. LEFT HAND IV SL, DRESSING C/D/I. RIGHT KNEE INCISION WITH KERRY WELL APPROXIMATED, EDEMA 4+, BRUISING, REDNESS, AND WARM TO TOUCH. WILL CONTINUE TO MONITOR
[2019-03-26 20:42] VITALS: BP 121/69
--- NOTE | 2019-03-27 00:55 | NUR ---
QUIET HOURS. LYING IN BED EYES CLOSED RESTING. HOME CPAP ON WORKING PROPERLY. NO SIGNS OF DISTRESS NOTED. WILL CONTINUE TO MONITOR
--- NOTE | 2019-03-27 02:56 | NUR ---
LYING IN BED SUPINE EYES CLOSED RESTING. NO SIGNS OF DISTRESS NOTED. WILL CONTINUE TO MONITOR
--- NOTE | 2019-03-27 06:26 | NUR ---
LYING IN BED EYES CLOSED RESTING. EASILY AROUSED WITH STIMULI. FSBS 139. DENIES ANY PAIN OR NEEDS. URINAL EMPTIED 900ML
[2019-03-27 07:05] LABS: BASOPHILS 0.1 % (0-2); EOSINOPHILS 1.1 % (0-7); HEMATOCRIT 30.7 % (42.0-54.0); HEMOGLOBIN 10.4 g/dL (13.5-17.5); IMMATURE GRANULOCYTES 1.8 % (0-5); LYMPHOCYTES 20.4 % (15-50); MCH 28.9 pg (26.0-34.0); MCHC 33.9 g/dL (31.0-37.0); MEAN PLATELET VOLUME 8.7 fL (7.4-10.4); NEUTROPHILS 66.6 % (40-80); PLATELET COUNT 309 10x3/uL (130-400); RDW 15.3 % (11.5-14.5); WBC 9.7 10x3/uL (4.8-10.8)
[2019-03-27 07:06] LABS: MCV 85.3 fL (80.0-100.0)
[2019-03-27 07:15] LABS: CALC OSMOLALITY 270 mosm/kg (275-300); CARBON DIOXIDE 25.7 mmol/L (21.0-32.0); CHLORIDE - SERUM 96 mmol/L (98-107); CREATININE - SERUM 0.9 mg/dL (0.6-1.3); GLUCOSE 145 mg/dL (74-106); POTASSIUM - SERUM 3.9 mmol/L (3.5-5.1); SODIUM 132 mmol/L (136-145); UREA NITROGEN 20 mg/dL (7-18); eGFR NON AFRICAN AMERICAN 88 mL/min (90-120)
[2019-03-27 08:23] VITALS: BP 146/69
--- NOTE | 2019-03-27 15:25 | NUR ---
SITTING UP IN WC. DENIES NEEDS OR C/O. INCISION OPEN TO AIR. NO S/S INFECTION
--- NOTE | 2019-03-27 16:05 | NUR ---
PATIENT ADMITTES TO REHAB FROM ACUTE FLOOR. DR. CROFT IS HIS PCP AND DR. PANG IS HIS ORTHO DOCTOR. DME AT HOME IS A WALKER. DISCHARGE PLANS ARE FOR PATIENT TO RETURN TO HIS HOME. WILL CONTINUE TO FOLLOW WITH PATIENT.
--- NOTE | 2019-03-27 18:05 | NUR ---
LAYING IN BED TALKING TO ATE A BETTER SUPPER. JUST FINISHED WITH CPM. INCISION STILL LOOKS GOOD WITH NO S/S INFECTION OR DRAINAGE.
--- NOTE | 2019-03-27 20:56 | NUR ---
REST IN BED, CALL LIGHT IN REACH,
[2019-03-27 23:04] VITALS: BP 157/76
--- NOTE | 2019-03-28 01:32 | NUR ---
REST IN BED. CALLL LIGHT IN REACH.
--- NOTE | 2019-03-28 04:02 | NUR ---
I have reviewed this patient and I concur with the Shift Assessment completed by the Licensed Practical Nurse today this shift.
[2019-03-28 08:22] VITALS: BP 167/84
--- NOTE | 2019-03-28 08:52 | NUR ---
PT AM MEDS ADMINISTERED. PT DENIES NEEDS. WCTM.
--- NOTE | 2019-03-28 15:26 | NUR ---
Nutrition Follow-up: Diet: Diabetic diet PO intake: 54% Reports good appetite. Doesn't want Glucerna. +BM, labs and meds reviewed RD Following
--- NOTE | 2019-03-28 17:45 | NUR ---
PT SITTING UP IN BED EATING DINNER, DENIES NEEDS. WCTM.
--- NOTE | 2019-03-28 20:00 | NUR ---
CPM STARTED. DENIES NEEDS AT THIS TIME. PT AT 80DEGREES ANGLE.
--- NOTE | 2019-03-28 20:01 | NUR ---
PT LYING IN BED WATCHING TV. CL IN REACH. DENIES NEEDS AT THIS TIME. BED IN LOW SIDE RAILS X2. RESP EVEN AND UNLABORED. WCTM
[2019-03-28 21:03] VITALS: BP 139/68
--- NOTE | 2019-03-28 23:47 | NUR ---
ASSISTED PT TO THE SIDE OF BED TO USE URINAL. 200CC OUT IN URINAL. DENIES FURTHER NEEDS. CPM REMOVED. CPAP PUT ON BY PT. WCTM
--- NOTE | 2019-03-29 05:36 | NUR ---
FSBS 143. PT RESTING QUIETLY. CPAP ON. DENIES NEEDS AT THIS TIME. CL IN REACH. WCTM
[2019-03-29 06:43] LABS: BASOPHILS 0.1 % (0-2); EOSINOPHILS 1.9 % (0-7); HEMATOCRIT 31.6 % (42.0-54.0); HEMOGLOBIN 10.5 g/dL (13.5-17.5); IMMATURE GRANULOCYTES 1.1 % (0-5); LYMPHOCYTES 22.5 % (15-50); MCH 29.1 pg (26.0-34.0); MCHC 33.2 g/dL (31.0-37.0); MEAN PLATELET VOLUME 8.1 fL (7.4-10.4); MONOCYTES 7.6 % (2-11); NEUTROPHILS 66.8 % (40-80); PLATELET COUNT 295 10x3/uL (130-400); RBC 3.61 10x6/uL (4.20-6.10); RDW 15.5 % (11.5-14.5); WBC 7.9 10x3/uL (4.8-10.8)
[2019-03-29 06:57] LABS: MCV 87.5 fL (80.0-100.0)
[2019-03-29 07:06] LABS: CALC OSMOLALITY 270 mosm/kg (275-300); CHLORIDE - SERUM 98 mmol/L (98-107); CREATININE - SERUM 0.9 mg/dL (0.6-1.3); GLUCOSE 130 mg/dL (74-106); SODIUM 133 mmol/L (136-145); UREA NITROGEN 20 mg/dL (7-18); eGFR NON AFRICAN AMERICAN 88 mL/min (90-120)
[2019-03-29 07:12] LABS: POTASSIUM - SERUM 4.5 mmol/L (3.5-5.1)
[2019-03-29 08:02] VITALS: BP 143/72
--- NOTE | 2019-03-29 08:48 | NUR ---
PATIENT SITTING UP IN BED AFTER BREAKFAST. ALERT/ORIENT. CALL LIGHT WITHIN REACH. WILL CONTINUE WITH PLAN OF CARE
--- NOTE | 2019-03-29 10:19 | NUR ---
PATIENT IN REHAB ROOM. WORKING WITH PHYSICAL THERAPIST. DENIES ANY PAIN/DISC AT THIS TIME.
--- NOTE | 2019-03-29 11:32 | NUR ---
GLUCOSE LEVEL 133. NO SLIDING SCALE INSULIN GIVEN PER ORDER.
--- NOTE | 2019-03-29 11:41 | RHP ---
PATIENT: DEB GHOSH MEDICAL RECORD: [id number] ACCOUNT: [id number] LOCATION:[facility]1117 : [birth year] ADMISSION DATE: 03/24/19 REHABILITATION HISTORY AND PHYSICAL EXAMINATION POST ADMISSION PHYSICIAN EXAMINATION POST ADMISSION PHYSICAL EXAMINATION AND HISTORY AND PHYSICAL DATE OF ADMISSION: 03/24/2019 ADMITTING DIAGNOSIS: Status post right total knee replacement. HISTORY OF PRESENT ILLNESS: The patient is admitted secondary to a lower extremity joint replacement. The patient has a history of mild right knee pain, instability, aching with cold temperature and recent fall. He had multiple cortisone knee injections without relief. Pain began to affect his activities of daily living. On March 20, he went to the OR for right total knee secondary degenerative arthritis. Postop course was complicated by postop fever with a T-max of 100.4, acute blood loss anemia for which he has received 1 unit of packed red blood cells. Low sodium and also a low potassium and hyperglycemia. He is on electrolyte protocol at this time. He is getting fingerstick blood sugars with sliding scale. He has got a past medical history of asthma, morbid obesity, coronary artery disease, diabetes, and hypertension. Previously independent with his ADLs and mobility. Currently, he is mod-to-max assist for ADLs and mobility. The patient is morbidly obese and fatigues quickly and becomes short of breath. He wants to regain his strength and hopefully return home with his . Comorbidities include skin abscess, osteoarthritis, diabetes mellitus, hypertension, hyperlipidemia, history of CVA, hypothyroidism, sleep apnea, asthma, acute blood loss anemia, hyponatremia, hypokalemia, hyperglycemia, postop fever, and morbid obesity. PAST MEDICAL HISTORY: Significant for diabetes, thyroid problems, asthma, TIA. PAST SURGICAL HISTORY: Includes gallbladder surgery, right inguinal hernia repair. He has had nasal surgery, knee scope, and now knee replacement. ALLERGIES: KEFLEX, TETRACYCLINE, ERYTHROMYCIN, AND LEVAQUIN. CURRENT MEDICATIONS: Include atorvastatin 5 mg, he takes a couple of times a week. Multivitamin daily. He is on lisinopril 40 mg daily, Protonix 40 mg daily, Plavix 75 mg daily, Celexa 10 mg daily, vitamin C 1000 mg daily, metformin 1000 mg b.i.d. with meals. He is on a low-resistant sliding scale with insulin. He is on Synthroid 100 mcg daily, Lauren 60 mg b.i.d., niacin 500 mg at bedtime. He is on Lantus 50 units daily. He is on glucosamine chondroitin sulfate or Osteo Bi-Flex daily, fish oil daily. He is on Colace 200 mg at bedtime, Eliquis 2.5 mg b.i.d., Percocet 10/325 one tab every 4 hours p.r.n., and MiraLax 17 grams in 8 ounces of water daily. HABITS: No alcohol or tobacco use. FAMILY HISTORY: Noncontributory. SOCIAL HISTORY: The patient hopes to return back home and get back to his prior level of functioning. HISTORY AND PHYSICAL [id number] DEB GHOSH REVIEW OF SYSTEMS: GENERAL: Does complain of some weakness and fatigue. HEENT: Denies cold, cough, or congestion. CARDIOVASCULAR: Denies chest pain. PHYSICAL EXAMINATION: VITAL SIGNS: Stable, afebrile. GENERAL: A morbidly obese gentleman, in no acute distress upon exam. HEENT: Normocephalic and atraumatic. Mucosa moist. NECK: Supple. No lymphadenopathy. LUNGS: Clear in the upper maza, decreased breath sounds in the bases secondary to body habitus. CARDIOVASCULAR: Regular rate and rhythm. No murmurs, rubs or gallops. ABDOMEN: Soft, benign, nondistended. Positive bowel sounds times 4. Noted to be obese. EXTREMITIES: No clubbing, cyanosis or edema. He does have normal postop swelling for a total knee. NEUROLOGIC: He seems mainly intact. LABORATORY DATA: White count is 8.9, H&H of 8.7 and 24.8, and platelet count was noted to be 255. Sodium is 125, potassium 3.0, BUN and creatinine of 21 and 0.9, and blood sugar is noted to be 143. ASSESSMENT: This 73-year-old gentleman admitted to the rehab with a working diagnosis of right total knee and also multiple electrolyte abnormalities. The patient has potential to make improvement. We will institute the following multidisciplinary therapies including, but not limited to, physical, occupational, respiratory, speech, nutritional services, prosthetics, and orthotics. Given his complex medical condition and risks for further medical complications, rehabilitation services cannot be provided at a lower level of care such as a skilled nurse facility. PLAN: 1. Admit to [facility] for inpatient therapy to include the following disciplines; A. Physical therapy to improve gait, all transfer skills, and bed mobility to modified independent level. B. Occupational therapy to modified independent level. C. Case management to assist with discharge planning and placement options. D. Nutrition to assist with nutritional needs. E. Rehabilitation nursing to assist in monitoring the patient's underlying medical conditions and to assist with any type of bowel or bladder management. 2. We will go ahead and work on getting his sodium level up. 3. We will also replace his potassium. 4. I am going go ahead and give him a couple units of blood and I will follow up in the a.m. TRANSINT:[id number] Voice Confirmation ID: [id number] DOCUMENT ID: [id number] RAFAEL notes whether there has been none or any medical/functional change since admission: - No change since pre-admission screen. HISTORY AND PHYSICAL [id number] DEB GHOSH attests patient continues to be appropriate for IRF: - Continues to be appropriate. SEA NIÑO MD at 1141 CC: [id number] DICTATION DATE: 03/25/19 1208 METHOD CONSULTANT: 03/25/19 1401 ADM IN [facility] [address] [place] [id number]
--- NOTE | 2019-03-29 19:56 | NUR ---
PATIENT RECEIVED SITTING UP IN BED. FRIENDS AT BEDSIDE. ASSESSMENT & VITAL SIGNS DONE. PATIENT STATED " I DON'T WANT TO USE MY CPM TONIGHT." NO C/O PAIN OR DISTRESS. BED LOW. BEDSIDE TABLE & CALL LIGHT WITHIN REACH. WILL CONTINUE TO MONITOR.
[2019-03-29 20:00] VITALS: BP 137/60
--- NOTE | 2019-03-30 00:51 | NUR ---
I have reviewed this patient and I concur with the Shift Assessment completed by the Licensed Practical Nurse today this shift.
--- NOTE | 2019-03-30 03:50 | NUR ---
PATIENT EYES CLOSED. RESPIRATIONS 18 & EVEN. BED LOW. CALL LIGHT WITHIN REACH. WILL CONTINUE TO MONITOR.
--- NOTE | 2019-03-30 03:56 | NUR ---
PATIENT EYES CLOSED. CPAP CONTINUES. BED LOW. CALL LIGHT & URINAL WITHIN REACH. WILL CONTINUE TO MONITOR.
[2019-03-30 08:14] VITALS: BP 148/59
--- NOTE | 2019-03-30 20:00 | NUR ---
PATIENT RECEIVED SITTING UP IN BED. ASSESSMENT & VITAL SIGNS DONE. NO C/O PAIN OR DISTRESS. BED LOW. CALL LIGHT WITHIN REACH. WILL CONTINUE TO MONITOR.
[2019-03-30 23:10] VITALS: BP 125/59
--- NOTE | 2019-03-31 03:18 | NUR ---
I have reviewed this patient and I concur with the Shift Assessment completed by the Licensed Practical Nurse today this shift.
[2019-03-31 08:42] VITALS: BP 128/57
[2019-03-31 09:12] LABS: BASOPHILS 0.1 % (0-2); HEMATOCRIT 33.7 % (42.0-54.0); HEMOGLOBIN 11.2 g/dL (13.5-17.5); IMMATURE GRANULOCYTES 1.7 % (0-5); MCH 29.5 pg (26.0-34.0); MCHC 33.2 g/dL (31.0-37.0); MCV 88.7 fL (80.0-100.0); MEAN PLATELET VOLUME 8.5 fL (7.4-10.4); MONOCYTES 8.3 % (2-11); NEUTROPHILS 62.9 % (40-80); RDW 15.5 % (11.5-14.5); WBC 7.9 10x3/uL (4.8-10.8)
[2019-03-31 09:23] LABS: CALC OSMOLALITY 273 mosm/kg (275-300); CALCIUM 9.7 mg/dL (8.5-10.1); CARBON DIOXIDE 26.3 mmol/L (21.0-32.0); CHLORIDE - SERUM 100 mmol/L (98-107); CREATININE - SERUM 0.9 mg/dL (0.6-1.3); GLUCOSE 118 mg/dL (74-106); POTASSIUM - SERUM 4.6 mmol/L (3.5-5.1); SODIUM 135 mmol/L (136-145); UREA NITROGEN 21 mg/dL (7-18); eGFR NON AFRICAN AMERICAN 88 mL/min (90-120)
[2019-03-31 09:30] LABS: PLATELET COUNT 382 10x3/uL (130-400)
--- NOTE | 2019-03-31 19:33 | NUR ---
PT REQUESTED CPM BE PLACED ON HIM. STATED HE WAS SUPPOSED TO GET IT AT 1600.
[2019-03-31 20:44] VITALS: BP 121/68
--- NOTE | 2019-03-31 21:04 | NUR ---
PT IS RESTING IN BED WITH EYES OPEN. ALERT AND ORIENTED X 3. DENIES ACUTE PAIN OR DISCOMFORT AT THIS TIME. CPM IS ON RIGHT LEG. INCISION TO KNEE IS CDI. NO DRAINAGE NOTED. KERRY ARE INTACT. NO NEEDS VOICED. SR'S ARE UP X 2 IN BED. CALL LIGHT AND BEDSIDE TABLE ARE WITHIN EASY REACH.
--- NOTE | 2019-04-01 00:01 | NUR ---
RESTING IN BED WITH EYES CLOSED.
--- NOTE | 2019-04-01 04:01 | NUR ---
RESTING IN BED WITH EYES CLOSED. USING URINAL PRN.
--- NOTE | 2019-04-01 06:56 | NUR ---
I have reviewed this patient and I concur with the Shift Assessment completed by the Licensed Practical Nurse today this shift.
[2019-04-01 08:00] VITALS: BP 156/58
--- NOTE | 2019-04-01 08:00 | NUR ---
PATIENT SITTING UP IN BED TO EAT BREAKFAST. PATIENT IS ALERT/ORIENT. CALL LIGHT WITHIN REACH. VOICES NO NEEDS. WILL CONTINUE WITH PLAN OF CARE
--- NOTE | 2019-04-01 10:24 | NUR ---
PATIENT LYING IN BED WITH CPM ON RIGHT LEG
--- NOTE | 2019-04-01 11:58 | NUR ---
GLUCOSE LEVEL 119. NO SLIDING SCALE INSULIN GIVEN PER ORDER
--- NOTE | 2019-04-01 16:00 | NUR ---
PATIENT IN REHAB ROOM. WORKING WITH PHYSICAL THERAPIST.
--- NOTE | 2019-04-01 18:00 | NUR ---
I have reviewed this patient and I concur with the Shift Assessment completed by the Licensed Practical Nurse today this shift.
--- NOTE | 2019-04-01 19:19 | NUR ---
PT SITTING UP IN BED. CL IN REACH. IN ROOM. DENIES NEEDS OR PAIN AT THIS TIME. BED IN LOW SIDE RAILS X. A/O X4. RESP EVEN AND UNLABORED. WCTM
[2019-04-01 20:21] VITALS: BP 132/59
--- NOTE | 2019-04-02 02:53 | NUR ---
I have reviewed this patient and I concur with the Shift Assessment completed by the Licensed Practical Nurse today this shift.
--- NOTE | 2019-04-02 06:26 | NUR ---
ASSISTED TO AND FROM BATHROOM. BACK IN BED. BM NOTED. CL IN REACH. DENIES FURTHER NEEDS. WCTM
[2019-04-02 08:14] VITALS: BP 107/55
--- NOTE | 2019-04-02 08:37 | NUR ---
PATIENT IS ALERT/ORIENT. SITTING UP IN BED AFTER BREAKFAST. BED ALARM ON. CALL LIGHT WITHIN REACH. VOICES NO NEEDS AT THIS TIME. WILL CONTINUE WITH PLAN OF CARE
--- NOTE | 2019-04-02 13:00 | NUR ---
I have reviewed this patient and I concur with the Shift Assessment completed by the Licensed Practical Nurse today this shift.
--- NOTE | 2019-04-02 14:02 | NUR ---
PATIENT HELPED WITH SHOWER BY NURSE ASST.
--- NOTE | 2019-04-02 19:38 | NUR ---
PT LYING IN BED. CL IN REACH. DENIES NEEDS AT THIS TIME. BED IN LOW SIDE RAILS X2. A/O X4. RESP EVEN AND UNLABORED. WCTM
[2019-04-02 19:43] VITALS: BP 133/72
--- NOTE | 2019-04-03 02:22 | NUR ---
I have reviewed this patient and I concur with the Shift Assessment completed by the Licensed Practical Nurse today this shift.
--- NOTE | 2019-04-03 06:31 | NUR ---
PT RESTING QIETLY. CL IN REACH. NO DISTRESS NOTED. WCTM
[2019-04-03 07:20] LABS: BASOPHILS 0.3 % (0-2); EOSINOPHILS 1.7 % (0-7); IMMATURE GRANULOCYTES 0.8 % (0-5); LYMPHOCYTES 28.6 % (15-50); MCH 29.3 pg (26.0-34.0); MCHC 33.3 g/dL (31.0-37.0); MEAN PLATELET VOLUME 8.3 fL (7.4-10.4); MONOCYTES 7.2 % (2-11); NEUTROPHILS 61.4 % (40-80); PLATELET COUNT 369 10x3/uL (130-400); RBC 3.75 10x6/uL (4.20-6.10); RDW 15.3 % (11.5-14.5); WBC 7.6 10x3/uL (4.8-10.8)
[2019-04-03 07:31] LABS: CALC OSMOLALITY 275 mosm/kg (275-300); CALCIUM 9.7 mg/dL (8.5-10.1); CARBON DIOXIDE 26.2 mmol/L (21.0-32.0); CHLORIDE - SERUM 102 mmol/L (98-107); GLUCOSE 112 mg/dL (74-106); POTASSIUM - SERUM 4.5 mmol/L (3.5-5.1); SODIUM 136 mmol/L (136-145); UREA NITROGEN 20 mg/dL (7-18); eGFR NON AFRICAN AMERICAN 78 mL/min (90-120)
--- NOTE | 2019-04-03 08:15 | NUR ---
SITTING UP IN ROOM IN WC WAITING ON BREAKFAST. DENIES INCREASED PAIN. INCISION TO RT KNEE IS INTACT. NO S/S INFECTION. CALL LIGHT IN REACH
[2019-04-03 09:00] VITALS: BP 140/76
--- NOTE | 2019-04-03 17:53 | NUR ---
SITTING UP IN WC IN ROOM FINISHING SUPPER AND VISITING WITH . HE HAS RLE PROPPED UP IN WC LEG SUPPORT. INCISION IS INTACT. DENIES NEEDS.
--- NOTE | 2019-04-03 20:16 | NUR ---
PT REST IN BED, RIGHT LEG ON CPM MACHINE.CALL LIGHT IN REACH.
[2019-04-03 23:47] VITALS: BP 109/64
--- NOTE | 2019-04-04 01:43 | NUR ---
REST IN BED, EYE CLOSE, CALL LIGHT IN REACH.
--- NOTE | 2019-04-04 04:07 | NUR ---
I have reviewed this patient and I concur with the Shift Assessment completed by the Licensed Practical Nurse today this shift.
--- NOTE | 2019-04-04 04:27 | NUR ---
REST IN BED, CALL LIGHT IN REACH.
--- NOTE | 2019-04-04 08:00 | NUR ---
SITTING UP IN WC FOR BREAKFAST. DENIES INCREASED PAIN TO RT KNEE. USES WC AND WALKER FOR AMBULATION ASST. CALL LIGHT IN REACH
[2019-04-04 08:10] VITALS: BP 149/79
[2019-04-04] MEDS ORDERED: PERCOCET 10-321 EAC1 PO ×2 (08:52→08:55)
--- NOTE | 2019-04-04 12:37 | NUR ---
PATIENT DISCHARGING HOME TODAY WITH FAMILY. [facility] WILL PROVIDE THERAPY AT HOME. HOUSE CALLS WILL FOLLOW WITH PATIENT. PATIENT WILL SEE DR. CROFT NEEDED, DR. PANG 04/12/19 @ 1:30. PATIENT CHOICE FORM AND [facility] FORMS SIGNED, COPY GIVEN TO PATIENT AND FILED IN CHART. ORDER HAS BEEN FAXED TO [email or web address] FOR CPM. DISCHARGE INSTRUCTIONS WITH [facility] DATA FAXED TO PCP, HOUSE CALLS , HOME HEALTH AND REVIEWED WITH PATIENT.
--- NOTE | 2019-04-04 13:24 | NUR ---
DC HOME WITH ALL PERSONAL BELONGINGS. WITH PT AT DC. MEDS CALLED INTO PHARMACY. REVIEWED DC PLAN, FOLLOW UP APPTS, S/S INFECTION TO RT KNEE. KERRY REMOVED PRIOR TO DC AND STERI STRIPS PLACED. INSTRUCTED PT AND ON USING STERI STRIPS AND WATCHING FOR INFECTION.
== END 2019-04-04 13:58 | disposition home health service (06) | DRG 560 ==
LOC: D.REHAB 13:32
PROVIDERS: ADMIT Emergency Medicine; ATTEND Emergency Medicine
DX: Z47.1 Aftercare following joint replacement surgery (principal); E87.1 Hypo-osmolality and hyponatremia; D62 Acute posthemorrhagic anemia; L02.91 Cutaneous abscess, unspecified; Z96.651 Presence of right artificial knee joint; E66.01 Morbid (severe) obesity due to excess calories; E11.65 Type 2 diabetes mellitus with hyperglycemia; E78.5 Hyperlipidemia, unspecified; D64.9 Anemia, unspecified; J45.909 Unspecified asthma, uncomplicated; E87.6 Hypokalemia; G47.30 Sleep apnea, unspecified; R50.82 Postprocedural fever; M19.90 Unspecified osteoarthritis, unspecified site; E03.9 Hypothyroidism, unspecified

== ENCOUNTER 2019-06-05 10:20 | Day surgery (SDC) | payer MEDICARE, OTHER ==
[2019-06-02 14:59] LABS: HEMATOCRIT 41.9 % (42.0-54.0); HEMOGLOBIN 13.5 g/dL (13.5-17.5); MCHC 32.2 g/dL (31.0-37.0); MCV 89.9 fL (80.0-100.0); MEAN PLATELET VOLUME 9.3 fL (7.4-10.4); RBC 4.66 10x6/uL (4.20-6.10); RDW 14.4 % (11.5-14.5); WBC 6.9 10x3/uL (4.8-10.8)
[2019-06-02 15:04] LABS: CALC OSMOLALITY 283 mosm/kg (275-300); CALCIUM 9.5 mg/dL (8.5-10.1); CARBON DIOXIDE 29.1 mmol/L (21.0-32.0); CHLORIDE - SERUM 102 mmol/L (98-107); CREATININE - SERUM 0.9 mg/dL (0.6-1.3); GLUCOSE 91 mg/dL (74-106); POTASSIUM - SERUM 3.6 mmol/L (3.5-5.1); SODIUM 142 mmol/L (136-145); UREA NITROGEN 16 mg/dL (7-18); eGFR NON AFRICAN AMERICAN 88 mL/min (90-120)
[~2019-06-05] VITALS: Ht 177.8 cm; Wt 124.7 kg
[~2019-06-05 10:20] MED LIST changes: +ELIQUIS2.5 MG PO; +PERCOCET 10-321 EAC1 PO; +STOOL SOFTENER100 M1 PO
[2019-06-05 11:00] VITALS: BP 140/79; Ht 177.8 cm; Wt 124.7 kg
--- NOTE | 2019-06-05 13:18 | NUR ---
1315 IV REMOVED AND PRESSURE HELD AND DRESSING APPLIED
--- NOTE | 2019-06-05 14:19 | NUR ---
1320 IV REMOVED AND PT HAD A SECOND BM. UP WITH WALKER.
--- NOTE | 2019-06-29 11:00 | OP ---
PATIENT NAME: DEB GHOSH MEDICAL RECORD: [id number] :45 LOCATION:D.[facility] ADMISSION DATE: SURGEON: DEB PANG MD DATE OF OPERATION: 06/05/2019 PREOPERATIVE DIAGNOSIS: Stiff right knee, status post total knee arthroplasty. POSTOPERATIVE DIAGNOSIS: Stiff right knee, status post total knee arthroplasty. PROCEDURE: Right knee manipulation. SURGEON: Deb Pang MD ANESTHESIA: TIVA. INTRAOPERATIVE COMPLICATIONS: None. SUMMARY OF PATHOLOGIC FINDINGS: The patient had an excellent release with manipulation both in flexion and extension. OPERATIVE SUMMARY IN DETAIL: After obtaining the appropriate preoperative orthopedic surgery consent as well as anesthetic consultation, evaluation and clearance, the patient was brought to the operating room and left on his hospital outpatient gurney. After adequate TIVA had been administered, the patient's right leg was held firmly to support both the tibia and the femur that was manipulated first in flexion and then in extension. Care was taken to avoid excessive and undue manipulation. Manipulation was carried out to approximately 130 degrees of flexion and 0 degrees of extension. Having completed this, the patient was awakened and taken back to outpatient in stable condition. TRANSINT:[id number] Voice Confirmation ID: [id number] DOCUMENT ID: [id number] DEB PANG MD at 1100 CC: [id number] DICTATION DATE: 06/29/19 1049 HEAD OF MAINTENANCE: 06/29/19 1058 [facility] 06/05/19 [address] [id number] [place] [address]
== END 2019-06-05 13:40 | disposition home or self-care (01) ==
LOC: D.OPS 10:20 → D.PAN 12:30 → D.OPS 12:30 → D.PAN 18:30 → D.OPS 18:30
PROVIDERS: Anesthesiology; ATTEND Orthopaedic Surgery
DX: M17.11 Unilateral primary osteoarthritis, right knee (principal); M25.661 Stiffness of right knee, not elsewhere classified; M25.561 Pain in right knee

== ENCOUNTER 2019-08-21 07:54 | Day surgery (SDC) | payer MEDICARE, OTHER ==
[~2019-08-21] VITALS: Ht 177.8 cm; Wt 133.8 kg
[2019-08-21 08:31] LABS: HEMATOCRIT 42.7 % (42.0-54.0); HEMOGLOBIN 13.9 g/dL (13.5-17.5); MCH 28.8 pg (26.0-34.0); MCHC 32.6 g/dL (31.0-37.0); MCV 88.4 fL (80.0-100.0); MEAN PLATELET VOLUME 9.4 fL (7.4-10.4); RBC 4.83 10x6/uL (4.20-6.10); RDW 14.6 % (11.5-14.5); WBC 6.4 10x3/uL (4.8-10.8)
[2019-08-21 08:36] LABS: ANION GAP 14.2 mmol/L (8-16); CALCIUM 9.6 mg/dL (8.5-10.1); CARBON DIOXIDE 28.8 mmol/L (21.0-32.0); CREATININE - SERUM 1.2 mg/dL (0.6-1.3)
[2019-08-21] MEDS ORDERED: LOPID600 MG PO (09:23)
[2019-08-21 09:34] VITALS: BP 146/87; Ht 177.8 cm; Wt 133.8 kg
[2019-08-21] MEDS ORDERED: PERCOCET 10-321 EAC1 PO (09:57)
--- NOTE | 2019-08-21 12:36 | NUR ---
3006 DR. POLY PATTON
--- NOTE | 2019-08-21 13:10 | NUR ---
PT URINATED 150ML CLEAR YELLOW URINE.
--- NOTE | 2019-08-21 13:35 | NUR ---
PT DC INSTRUCTIONS REVIEWED AT THIS TIME, PT VERBALIZES UNDERSTANDING. PT IV REMOVED AT THIS TIME, INTACT, NO REDNESS OR SWELLING NOTED AT SITE.
--- NOTE | 2019-08-21 13:41 | NUR ---
PT LEAVING OPS AT THIS TIME VIA WC, NAD NOTED.
--- NOTE | 2019-08-28 08:35 | OP ---
PATIENT NAME: DEB GHOSH MEDICAL RECORD: [id number] :45 LOCATION:.[facility] ADMISSION DATE: SURGEON: DEB PANG MD DATE OF OPERATION: 08/21/2019 PREOPERATIVE DIAGNOSIS: Stiff knee, right knee that is postoperative adhesive capsulitis. POSTOPERATIVE DIAGNOSIS: Stiff knee, right knee that is postoperative adhesive capsulitis. PROCEDURES: Right knee manipulation under anesthesia with a block. ANESTHESIA: TIVA. INTRAOPERATIVE COMPLICATIONS: None. SUMMARY OF PATHOLOGIC FINDINGS: The patient had excellent release with flexion up to 135 after manipulation as well as extension to 0. OPERATIVE SUMMARY IN DETAIL: After obtaining the appropriate preoperative orthopedic surgery consent as well as anesthetic consultation, evaluation, and clearance the patient was brought to the operating room and placed on the operating table in supine position. After TIVA anesthesia was administered and checked, appropriate timeout was taken and agreed upon by all. The knee was then held and manipulated to approximately 135 degrees and then 0 degrees of extension. Having completed this, the patient was prepared with a brace to protect his lower extremity from the regional anesthesia and sent back to outpatient in stable condition. All final needle and sponge counts were correct. TRANSINT:[id number] Voice Confirmation ID: [id number] DOCUMENT ID: [id number] DEB PANG MD at 0835 CC: [id number] DICTATION DATE: 08/25/19 1058 MANAGER BANQUET: 08/25/19 1510 [facility] 08/21/19 [place] [id number]
== END 2019-08-21 13:41 | disposition home or self-care (01) ==
LOC: D.OPS 07:54 → D.PAN 11:30 → D.OPS 11:30
PROVIDERS: Anesthesiology; ATTEND Orthopaedic Surgery
DX: M24.661 Ankylosis, right knee (principal); M17.9 Osteoarthritis of knee, unspecified; Z96.651 Presence of right artificial knee joint